=== PATIENT | male | born 1945 | race Two or more races ===

== ENCOUNTER → 2016-06-09 | Outpatient (CLI) | payer MEDICARE, OTHER ==
--- NOTE | 2016-06-09 10:26 | RADRPT ---
PROCEDURE: XR right knee. CLINICAL INDICATION: Knee pain TECHNIQUE: AP weightbearing, PA weightbearing, lateral weightbearing and sunrise views are availab le for review. COMPARISON: None available FINDINGS: There is mild osteoarthrosis involving the patellofemoral compartment. This is associated with minim al osteophytosis. There is otherwise normal mineralization, architecture and alignment. No fractures are identified. No osseous lesions are identified. The soft tissues are unremarkable. IMPRESSION: Mild osteoarthrosis involving the patellofemoral compartment. RPTAT: [facility] .Artemio Maldonado MD, Date Time Electronically viewed and signed by .Artemio Maldonado MD, on 06/09/2016 10:26 .B/
== END | disposition home or self-care (01) ==
LOC: HKI 09:31
PROVIDERS: ATTEND Orthopaedic Surgery
DX: M25.561 Pain in right knee (principal); S83.231A Complex tear of medial meniscus, current injury, right knee, initial encounter; M17.11 Unilateral primary osteoarthritis, right knee
CPT/HCPCS: G0463

== ENCOUNTER → 2016-07-21 | Outpatient (CLI) | payer MEDICARE, OTHER | END | disposition home or self-care (01) | LOC: HKI 09:21 | PROVIDERS: ATTEND Orthopaedic Surgery | DX: S83.231A Complex tear of medial meniscus, current injury, right knee, initial encounter (principal); X58.XXXA Exposure to other specified factors, initial encounter; M25.561 Pain in right knee | CPT/HCPCS: 87081; G0463 ==

== ENCOUNTER 2016-07-29 05:40 | Day surgery (SDC) | payer MEDICARE, OTHER ==
[2016-07-28 13:37] VITALS: BMI 28.2
[2016-07-29] VITALS (19 sets, daily range): BP systolic 115–151; BP diastolic 68–84; PULSE 64–114; RESP 11–18; Ht 170.2 cm; Wt 84.9 kg
[~2016-07-29] VITALS: Ht 170.2 cm; Wt 84.9 kg
[~2016-07-29 05:40] MED LIST: CEFAZOLIN 2GM/50 ML (PMX) 50 ML X1 BEFORE INCISION IVPB ONE; CELECOXIB 400 MG PO X1 DOSE PO ONE; LACTATED RINGER'S 1,000 ML IV SCH; ONDANSETRON 4 MG INJ IV ONE; PREGABALIN 300 MG PO X1 PO ONE; oxyCODONE (CR) 10 MG TAB [oxyCONTIN] X1 DOSE PO ONE; traMADOL 50 MG TAB X 1 DOSE PO ONE
[2016-07-29] MEDS ORDERED: ROPIVACAINE 0.5 % 30 ML VIAL ONE (06:46)
[2016-07-29] MEDS ORDERED: morphine SULFATE/PF (10 MG/10 ML) INJ ONE (06:47)
[2016-07-29] MEDS ORDERED: KETOROLAC 30 MG INJ ONE ×2 (06:47→07:00)
[2016-07-29] MEDS ORDERED: BUPIVACAINE 0.5%/EPI (SDV) 30 ML INJ ONE (06:47)
[2016-07-29] MEDS ORDERED: NEOSTIGMINE 3 MG/3 ML SYRINGE ONE (07:02)
[2016-07-29] MEDS ORDERED: DEXAMETHASONE 4 MG/ML 1 ML INJ ONE (07:02)
[2016-07-29] MEDS ORDERED: ONDANSETRON 4 MG INJ ONE (07:02)
[2016-07-29] MEDS ORDERED: PROPOFOL 20 ML ONE (07:02)
[2016-07-29] MEDS ORDERED: CEFAZOLIN 1 GM INJ ONE (07:02)
[2016-07-29] MEDS ORDERED: ROCURONIUM 50 MG INJ ONE (07:02)
[2016-07-29] MEDS ORDERED: GLYCOPYRROLATE 0.4 MG INJ ONE (07:02)
[2016-07-29] MEDS ORDERED: FENTAnyl 50 MCG/ML VIAL ONE (07:02)
[2016-07-29] MEDS ORDERED: MIDAZOLAM 1 MG/ML 2 ML INJ ONE (07:02)
--- NOTE | 2016-07-29 07:05 | HPN ---
Date/Time of Note Date/Time of Note DATE: 07/29/16 TIME: 07:04 Interval H&P Admission Note Pt. seen H&P reviewed: No system changes No changes from H&P on 07/15/16 by Peter Price NP and Dr. Jakob Naranjo on 07/25/16 SHIVAM HUDSON MD Jul 29, 2016 07:05
[2016-07-29] MEDS ORDERED: ROPIVACAINE 0.5 % 30 ML VIAL INJ ONE ×2 (07:20→07:50)
[2016-07-29] MEDS ORDERED: LIDOCAINE 2%/EPI 30 ML INJ ONE (07:22)
[2016-07-29] MEDS ORDERED: LIDOCAINE 1% (MPF) 30 ML INJ ONE (07:24)
[2016-07-29] MEDS ORDERED: KETOROLAC 30 MG INJ INJ ONE (07:50)
[2016-07-29] MEDS ORDERED: morphine SULFATE/PF (10 MG/10 ML) INJ INJ ONE (07:50)
[2016-07-29] MEDS ORDERED: LIDOCAINE 1% (MPF) 30 ML INJ INJ ONE (07:50)
[2016-07-29] MEDS ORDERED: OXYCODONE/ACETAMINOPHEN (5/325) TAB PO PRN ×2 (08:00)
[2016-07-29] MEDS ORDERED: MIDAZOLAM 1 MG/ML 2 ML INJ IV PRN (08:00)
[2016-07-29] MEDS ORDERED: DIPHENHYDRAMINE 50 MG INJ IV PRN (08:00)
[2016-07-29] MEDS ORDERED: MEPERIDINE 25 MG INJ IV PRN (08:00)
[2016-07-29] MEDS ORDERED: EPHEDrine SULFATE 50 MG/5 ML SYG IV PRN (08:00)
[2016-07-29] MEDS ORDERED: ONDANSETRON 4 MG INJ IV PRN (08:00)
[2016-07-29] MEDS ORDERED: TRIMETHOBENZAMIDE 100 MG/ML VIAL IM PRN (08:00)
[2016-07-29] MEDS ORDERED: LABETALOL HCL 20MG INJ IV PRN (08:00)
[2016-07-29] MEDS ORDERED: hydrALAzine 20 MG INJ IV PRN (08:00)
[2016-07-29] MEDS ORDERED: HYDROmorphONE (0.2 MG/ML) 10ML SYG IV PRN ×3 (08:00)
[2016-07-29] MEDS ORDERED: FENTAnyl 50 MCG/ML VIAL IV PRN ×3 (08:00)
--- NOTE | 2016-07-29 08:22 | OPR ---
Date/Time of Note Date/Time of Note DATE: 07/29/16 TIME: 08:21 Operative Report Free Text/Dictation Dictation # [id number] Preoperative Diagnosis Right Knee MM Tear Postoperative Diagnosis Same Operation/Procedure Performed Right Knee A/S and partial medial menisectomy Surgeon: SHIVAM HUDSON MD senior office support assistant sosa: QIAN LEWIS PA-C Anesthesia: general Estimated Blood Loss: minimal Specimens None Complications: None SHIVAM HUDSON MD Jul 29, 2016 08:22
--- NOTE | 2016-07-29 09:47 | OPR ---
DATE OF OPERATION: 07/29/2016 PREOPERATIVE DIAGNOSIS: Right knee medial meniscus tear. POSTOPERATIVE DIAGNOSIS: Right knee medial meniscus tear. OPERATION PERFORMED: Right knee arthroscopy, partial medial meniscectomy. SURGEON: Shivam Balderas MD PRODUCT DEVELOPMENT TECHNICIAN: KIRA Pierre ANESTHESIA: General endotracheal intubation. ANESTHESIOLOGIST: Dr. Sim TOURNIQUET TIME: 0 minutes. ESTIMATED BLOOD LOSS: Scant. INTRAVENOUS FLUIDS: 800 mL crystalloid. SPECIMENS: None. DRAINS: None. COMPLICATIONS: None. DISPOSITION: The patient tolerated the procedure well and was taken to the recovery room in stable condition. INDICATIONS: The patient is a 70-year-old gentleman who has had progressively worsening pain in the right knee with medial sided pain with mechanical symptoms of catching and popping. An MRI demonst rated a medial meniscus tear. I felt he would benefit from a knee arthroscopy and partial medial me niscectomy. The risks, benefits, alternatives of the procedure were explained in detail to the wei ent. I explained the risks to include, but not be limited to, bleeding, infection, pain, stiffness, neurovascular injury, possible numbness, weakness, and/or paralysis anywhere from the knee down to the toes, fracture, ligamentous injury, need for additional future surgery including possible total knee arthroplasty, wound healing problems, blood clots, pulmonary embolism, and anesthetic complicat ions such as heart attack, stroke, GI bleed, pneumonia, and/or . Ample time was allowed for th e patient to ask questions, all of which were addressed and answered. The patient understood the ri sks involved and wished to proceed. Informed consent was signed prior to the procedure. DESCRIPTION OF PROCEDURE: The right knee was initialed with a marking pen in the preoperative holdi ng area to identify the correct operative site. The patient was then brought to the operating room and transferred from the [facility] to the operating table where he was anesthetized and intuba jabari. A time out was performed to confirm the right side was the correct operative site. A tourniqu et was placed on the right proximal thigh. The patient was given 2 g of intravenous Ancef 1 hour pr ior to the incision. The superolateral aspect of the right knee was prepped with Betadine and then injected with 30 mL of 0.5% ropivacaine into the knee joint. The entire right knee and lower extrem ity were prepped and draped in the usual sterile fashion. Standard arthroscopic portal incisions were made, one inferolateral and one inferomedial. The arthr oscope was introduced into the inferolateral portal and the arthroscopy initiated. The suprapatella r pouch was inspected and free of loose bodies and synovitis. The undersurface of the patella had s ome grade II chondromalacia. The patella tracked well in the trochlear groove with no tilt or sublu xation. There was a focal area of grade III chondromalacia along the trochlear groove. The medial and lateral gutters were inspected and free of loose bodies and synovitis. The medial compartment w as inspected and there was a tear of the medial meniscus extending from the body to the posterior ho rn with a large fragment of the meniscus flipped into the medial gutter. This was flipped into the joint with a probe and the meniscal tear was debrided back to a stable edge with a combination of th e shaver and Arthrocare wand. It was probed and stable. The medial femoral condyle had a focal are a of grade III chondromalacia on the medial weightbearing aspect of the medial femoral condyle. The medial tibial plateau had some mild diffuse grade II chondromalacia. The inner trochlear notch was inspected and the ACL and PCL were in normal position with no evidence of tearing. The lateral com partment was then inspected, and the lateral meniscus was intact. The lateral femoral condyle and l ateral tibial plateau looked healthy with no degenerative changes. At this point, the arthroscopy w as completed. The knee was irrigated through the arthroscope until the egress of fluid was free of meniscal fragments and blood. The instruments were removed. The knee was injected with a mixture o f 0.5% ropivacaine, 4 mg Duramorph and 30 mg Toradol. The portal incisions were closed with interru pted 3-0 Monocryl and 3-0 Prolene in a vertical mattress fashion. Skin edges were sealed with Alder goodwin. The wounds were covered with Adaptic, 4x4s and wrapped in sterile cast padding and Ty wrap. The patient was awakened, extubated, and taken to the recovery room in stable condition. Dictated By: SHIVAM MCFARLAND/TIM Conf#: [id number] DID#: [id number]
== END 2016-07-29 09:51 | disposition home or self-care (01) ==
LOC: SDS 05:40 → SUR 05:40
PROVIDERS: ATTEND Orthopaedic Surgery
DX: M23.221 Derangement of posterior horn of medial meniscus due to old tear or injury, right knee (principal); E66.9 Obesity, unspecified; Z68.29 Body mass index [BMI] 29.0-29.9, adult
CPT/HCPCS: 29881; J0690; J1100; J1885; J2250; J2274; J2405; J2710; J2795; J3010; J7120; 87081

== ENCOUNTER → 2016-08-06 | Outpatient (CLI) | payer MEDICARE, OTHER ==
--- NOTE | 2016-08-06 14:02 | HKNOTE ---
DATE OF SERVICE: 08/06/2016 INTERVAL HISTORY: The patient presents today for his first postoperative evaluation. He is 8 days status post right knee arthroscopy and partial medial meniscectomy. He is doing well overall. He d enies any pain. He has not started physical therapy yet. He is very happy with his surgery thus fa r. He denies any fevers or chills. He presents today for evaluation. PHYSICAL EXAMINATION: On exam today, he is alert and oriented x4 and in no acute distress. Exam of the incision demonstrates it to be clean, dry and intact. Range of motion is 0 to 105 degrees. Th ere is no erythema or warmth noted. Compartments are soft. Homans sign is negative. He is neurova scularly intact distally. ASSESSMENT: Eight days status post right knee arthroscopy and partial medial meniscectomy. PLAN: The sutures were removed today and Steri-Strips were applied. He is weightbearing as tolerat ed on the right lower extremity. We will give him an outpatient physical therapy program to focus o n strength and range of motion. I will see him back in 4 weeks for repeat evaluation. Dictated By: QIAN MALONE for SHIVAM STAPLES/TIM Conf#: [id number] DID#: [id number]
== END | disposition home or self-care (01) ==
LOC: HKI 09:33
PROVIDERS: ATTEND Orthopaedic Surgery
DX: Z47.1 Aftercare following joint replacement surgery (principal); Z96.651 Presence of right artificial knee joint